=== PATIENT | female | born 1945 | race Caucasian/White ===

== ENCOUNTER 2020-12-06 22:57 | Inpatient (IN) | payer MEDICARE, OTHER ==
[2020-12-07 01:12] LABS: BASO % 0.7 % (0-2.0); EOS % 1.2 % (0-4.5); HEMATOCRIT 44.1 % (32.4-45.2); HEMOGLOBIN 15.1 GM/dL (10.7-15.3); LYMPH % 27.3 % (8-40); MCHC 34.2 g/dl (32.0-36.0); MEAN CELL VOLUME 90.5 fl (80-96); MEAN PLT VOLUME 10.5 fl (7.5-11.1); MONO % 8.8 % (3.8-10.2); RBC 4.87 M/mm3 (3.60-5.2); RDW 13.4 % (11.6-15.6); WHITE BLOOD COUNT 10.9 K/mm3 (4.0-10.0)
[2020-12-07 01:14] LABS: VENOUS BASE EXCESS 0.2 mmol/L (-2-2); VENOUS O2 SATURATION 86.7 % (70-80); VENOUS PCO2 42.5 mmHg (38-52); VENOUS PH 7.392 (7.310-7.410)
[2020-12-07 01:32] LABS: CHLORIDE 104 mmol/L (98-107); SODIUM 136 mmol/L (136-145)
[2020-12-07 01:35] LABS: ALBUMIN 3.4 g/dl (3.4-5.0); ANION GAP 8 MMOL/L (8-16); BLOOD UREA NITROGEN 24.8 mg/dL (7-18); CALCIUM 8.9 mg/dL (8.5-10.1); CO2 25 mmol/L (21-32); MAGNESIUM 2.5 mg/dL (1.8-2.4)
[2020-12-07 01:38] LABS: SGPT/ALT 112 U/L (13-61)
[2020-12-07 01:39] LABS: SGOT/AST 113 U/L (15-37)
[2020-12-07 01:40] LABS: BILIRUBIN,TOTAL 0.8 mg/dL (0.2-1); TOT PROT 7.4 g/dl (6.4-8.2)
[2020-12-07 01:41] LABS: ALK PHOS 96 U/L (45-117)
[2020-12-07 01:44] LABS: GLUCOSE,RANDOM 433 mg/dL (74-106)
[2020-12-07 03:00] LABS: PLATELET ESTIMATE NORMAL
[2020-12-07 03:04] LABS: PLATELET COUNT 210 10^3/uL (134-434)
[2020-12-07] MEDS ORDERED: LACTATED RINGERS SOLUTION 1000 ML INFUS.BAG IV ONE (03:34)
[2020-12-07] MEDS ORDERED: INSULIN REGULAR HUMAN 100 UNITS/ML *VIAL SQ ONE (03:34)
[2020-12-07] MEDS ORDERED: INSULIN REGULAR HUMAN 100 UNITS/ML *VIAL ONE (04:00)
[2020-12-07] MEDS ORDERED: HEPARIN NA (PORCINE) 5,000 UNITS/ML 1ML VIAL ONE (07:37)
[2020-12-07] MEDS: HEPARIN NA (PORCINE) 5,000 UNITS/ML 1ML VIAL SQ SCH ×3 (08:00→21:17)
[2020-12-07] MEDS: INSULIN SLIDING SCALE (NOVOLOG) 1 VIAL SQ SCH ×5 (08:00→23:17)
[2020-12-07] MEDS ORDERED: ALBUTEROL SO4 HFA INHALER IH PRN (08:30)
[2020-12-07] MEDS: MEMANTINE HCL 10 MG TABLET (FP) PO SCH ×2 (11:37→21:17)
[2020-12-07 12:12] LABS: INR 1.06 (0.83-1.09)
[2020-12-07 12:14] LABS: ACTIVATED PTT 23.6 SECONDS (25.2-36.5)
[2020-12-07 12:16] LABS: CHLORIDE 100 mmol/L (98-107); SODIUM 136 mmol/L (136-145)
[2020-12-07 12:18] LABS: CALCIUM 8.5 mg/dL (8.5-10.1)
[2020-12-07 12:19] LABS: ANION GAP 11 MMOL/L (8-16); CO2 25 mmol/L (21-32); GLUCOSE,RANDOM 175 mg/dL (74-106)
[2020-12-07 12:21] LABS: BLOOD UREA NITROGEN 21.2 mg/dL (7-18)
[2020-12-07] MEDS: ALBUTEROL SO4 0.083% IH SOL 2.5 MG/3 ML VIAL.NEB. NEB SCH ×3 (12:21→20:03)
[2020-12-07 12:22] LABS: CREATININE 0.8 mg/dL (0.55-1.3)
[2020-12-07] MEDS ORDERED: POTASSIUM CHLORIDE ORAL LIQUID 20 MEQ/15 ML PO ONE (12:36)
[2020-12-07] MEDS: QUEtiapine FUMARATE 25 MG TABLET PO SCH (13:02)
[2020-12-07] MEDS ORDERED: INSULIN (NOVOLOG) ASPART 100 UNITS/ML 10ML VIAL ONE (17:09)
[2020-12-08] MEDS: INSULIN SLIDING SCALE (NOVOLOG) 1 VIAL SQ SCH ×5 (03:36→21:23)
[2020-12-08] MEDS: HEPARIN NA (PORCINE) 5,000 UNITS/ML 1ML VIAL SQ SCH ×3 (05:06→21:23)
[2020-12-08 07:33] LABS: BASO % 0.6 % (0-2.0); EOS % 2.8 % (0-4.5); HEMATOCRIT 43.5 % (32.4-45.2); HEMOGLOBIN 14.8 GM/dL (10.7-15.3); LYMPH % 39.8 % (8-40); MCH 30.5 pg (25.7-33.7); MEAN CELL VOLUME 89.9 fl (80-96); MEAN PLT VOLUME 10.6 fl (7.5-11.1); MONO % 10.3 % (3.8-10.2); NEUT % 46.5 % (42.8-82.8); PLATELET COUNT 155 10^3/uL (134-434); RBC 4.84 M/mm3 (3.60-5.2); WHITE BLOOD COUNT 7.8 K/mm3 (4.0-10.0)
[2020-12-08] MEDS: ALBUTEROL SO4 0.083% IH SOL 2.5 MG/3 ML VIAL.NEB. NEB SCH ×4 (07:38→20:47)
[2020-12-08 07:54] LABS: CALCIUM 8.7 mg/dL (8.5-10.1)
[2020-12-08 07:55] LABS: ALBUMIN 3.2 g/dl (3.4-5.0); BLOOD UREA NITROGEN 14.3 mg/dL (7-18)
[2020-12-08 07:58] LABS: CREATININE 0.6 mg/dL (0.55-1.3)
[2020-12-08 07:59] LABS: BILIRUBIN,TOTAL 0.5 mg/dL (0.2-1); TOT PROT 6.5 g/dl (6.4-8.2)
[2020-12-08] MEDS: MEMANTINE HCL 10 MG TABLET (FP) PO SCH ×2 (09:18→21:23)
[2020-12-08] MEDS: QUEtiapine FUMARATE 25 MG TABLET PO SCH (09:18)
[2020-12-08] MEDS: metFORMIN HCL 500 MG TABLET (FP) PO SCH ×2 (10:32→17:44)
[2020-12-08 13:15] LABS: EPI CELLS 10 /uL (0-25.1); HYALINE CASTS 0 /uL (0-3.1); PH,URINE 5.5 (5.0-8.0); URINE APPEARANCE CLEAR; URINE BACTERIA 159 /uL (0-1359); URINE BILIRUBIN NEGATIVE (NEGATIVE); URINE COLOR YELLOW; URINE GLUCOSE (UA) TRACE (NEGATIVE); URINE KETONE TRACE (NEGATIVE); URINE LEUK ESTERASE TRACE (NEGATIVE); URINE NITRITE NEGATIVE (NEGATIVE); URINE PROTEIN NEGATIVE (NEGATIVE); URINE RBC 9 /uL (0-23.9); URINE WBC 11 /uL (0-25.8)
[2020-12-09] MEDS: INSULIN SLIDING SCALE (NOVOLOG) 1 VIAL SQ SCH ×4 (06:00→21:04)
[2020-12-09] MEDS: HEPARIN NA (PORCINE) 5,000 UNITS/ML 1ML VIAL SQ SCH ×3 (06:01→21:04)
[2020-12-09] MEDS: metFORMIN HCL 500 MG TABLET (FP) PO SCH ×2 (06:01→16:39)
[2020-12-09] MEDS: ALBUTEROL SO4 0.083% IH SOL 2.5 MG/3 ML VIAL.NEB. NEB SCH ×4 (07:40→20:40)
[2020-12-09] MEDS: MEMANTINE HCL 10 MG TABLET (FP) PO SCH ×2 (09:08→21:04)
[2020-12-09] MEDS: QUEtiapine FUMARATE 25 MG TABLET PO SCH (09:08)
[2020-12-09] MEDS ORDERED: ACETAMINOPHEN 325 MG TABLET (FP) PO PRN (10:31)
[2020-12-10] MEDS: INSULIN (LEVEMIR) 100 UNITS/ML UNITS SQ SCH (06:06)
[2020-12-10] MEDS: metFORMIN HCL 500 MG TABLET (FP) PO SCH ×2 (06:06→16:56)
[2020-12-10] MEDS: HEPARIN NA (PORCINE) 5,000 UNITS/ML 1ML VIAL SQ SCH ×3 (06:07→21:42)
[2020-12-10] MEDS: INSULIN SLIDING SCALE (NOVOLOG) 1 VIAL SQ SCH ×4 (06:07→22:45)
[2020-12-10] MEDS: ALBUTEROL SO4 0.083% IH SOL 2.5 MG/3 ML VIAL.NEB. NEB SCH ×4 (07:40→19:45)
[2020-12-10] MEDS: MEMANTINE HCL 10 MG TABLET (FP) PO SCH ×2 (09:44→21:42)
[2020-12-10] MEDS: QUEtiapine FUMARATE 25 MG TABLET PO SCH (09:44)
[2020-12-10 14:07] LABS: HEP B CORE AB, TOT Negative (Negative); HEPATITIS C VIRUS EIA <0.1 s/co ratio (0.0-0.9)
[2020-12-10 17:11] VITALS: BMI 25.4
[2020-12-11] MEDS: HEPARIN NA (PORCINE) 5,000 UNITS/ML 1ML VIAL SQ SCH ×2 (06:19→14:34)
[2020-12-11] MEDS: metFORMIN HCL 500 MG TABLET (FP) PO SCH (06:19)
[2020-12-11] MEDS: INSULIN SLIDING SCALE (NOVOLOG) 1 VIAL SQ SCH ×2 (06:20→12:23)
[2020-12-11] MEDS: INSULIN (LEVEMIR) 100 UNITS/ML UNITS SQ SCH (06:20)
[2020-12-11] MEDS: ALBUTEROL SO4 0.083% IH SOL 2.5 MG/3 ML VIAL.NEB. NEB SCH ×3 (08:05→15:40)
[2020-12-11] MEDS: MEMANTINE HCL 10 MG TABLET (FP) PO SCH (10:03)
[2020-12-11] MEDS: QUEtiapine FUMARATE 25 MG TABLET PO SCH (10:03)
[2020-12-11 14:17] VITALS: BP 129/69; PULSE 73; TEMP 98.2
== END 2020-12-11 16:36 | disposition home or self-care (01) | DRG 638 ==
LOC: JER 22:57 → JERBED 12-07 04:35 → OBSVTOIN 12-07 06:10 → J4W 12-07 09:17
PROVIDERS: ADMIT Internal Medicine; ATTEND Internal Medicine
DX: E11.65 Type 2 diabetes mellitus with hyperglycemia (principal); F02.81 Dementia in other diseases classified elsewhere, unspecified severity, with behavioral disturbance; G30.9 Alzheimer's disease, unspecified; W19.XXXA Unspecified fall, initial encounter; E78.5 Hyperlipidemia, unspecified; R00.1 Bradycardia, unspecified; R55 Syncope and collapse
CPT/HCPCS: 36415; 70450-TC; 71045-TC-FY; 72125-TC; 80048; 80053; 81003; 82010; 82803; 82962; 83036; 83735; 84484; 85025; 85610; 85730; 86704; 86706; 86707; 86708; 86709; 86803; 87086; 87340; 93005; 93010; 93306-TC; 93880-TC; 94640; 99285-25; C9803; G0378; J1644; U0003; U0005

== ENCOUNTER 2023-01-28 19:11 | Emergency (ER) | payer OTHER ==
[2023-01-28 19:22] VITALS: TEMP 98.3; BMI 31.5
[2023-01-28] MEDS ORDERED: DIPHTH,PERTUSS(ACELL),TET 0.5 ML DISP.SYRIN IM ONE ×2 (20:11→21:07)
[2023-01-28 21:34] LABS: BASO % 0.3 % (0-2.0); MCH 29.2 pg (25.7-33.7); MCHC 32.6 g/dl (32.0-36.0); MEAN CELL VOLUME 89.5 fl (80-96); MEAN PLT VOLUME 9.7 fl (7.5-11.1); MONO % 7.7 % (3.8-10.2); PLATELET COUNT 216 10^3/uL (134-434); RBC 4.47 M/mm3 (3.60-5.2); RDW 13.5 % (11.6-15.6); WHITE BLOOD COUNT 13.8 K/mm3 (4.0-10.0)
[2023-01-28 21:47] LABS: POTASSIUM 4.3 mmol/L (3.5-5.1)
[2023-01-28 21:49] LABS: CALCIUM 8.9 mg/dL (8.5-10.1)
[2023-01-28 21:50] LABS: ALBUMIN 3.4 g/dl (3.4-5.0); BLOOD UREA NITROGEN 29.9 mg/dL (7-18)
[2023-01-28 21:53] LABS: CREATININE 1.3 mg/dL (0.55-1.3)
[2023-01-28 21:54] LABS: TOT PROT 7.1 g/dl (6.4-8.2)
[2023-01-28 21:55] LABS: BILIRUBIN,TOTAL 0.1 mg/dL (0.2-1)
[2023-01-28] MEDS ORDERED: LIDOCAINE PATCH REMOVAL MC SCH (22:00)
[2023-01-28 22:02] LABS: INR 0.97 (0.83-1.09); PROTHROMBIN TIME (PATIENT) 11.3 SEC (9.7-13.0)
[2023-01-28 22:05] LABS: ACTIVATED PTT 25.9 SECONDS (25.2-36.5)
[2023-01-28 22:43] LABS: PH,URINE 5.5 (5.0-8.0); URINE APPEARANCE CLEAR; URINE BILIRUBIN NEGATIVE (NEGATIVE); URINE COLOR YELLOW; URINE GLUCOSE (UA) NEGATIVE (NEGATIVE); URINE KETONE NEGATIVE (NEGATIVE); URINE LEUK ESTERASE NEGATIVE (NEGATIVE); URINE NITRITE NEGATIVE (NEGATIVE); URINE PROTEIN NEGATIVE (NEGATIVE); URINE UROBILINOGEN 0.2 mg/dL (0.2-1.0)
[2023-01-28] MEDS ORDERED: LIDOCAINE 5% TOPICAL PATCH TP ONE (22:53)
[2023-01-28] MEDS ORDERED: LIDOCAINE 5% TOPICAL PATCH ONE (22:55)
[2023-01-29 00:54] VITALS: BP 125/69; PULSE 70; RESP 16
== END 2023-01-28 23:15 | disposition home or self-care (01) ==
LOC: JER 19:11
PROC: 3E0234Z Introduction of Serum, Toxoid and Vaccine into Muscle, Percutaneous Approach (ICD-10-PCS; principal; 2023-01-28)
DX: S22.31XA Fracture of one rib, right side, initial encounter for closed fracture (principal); G30.9 Alzheimer's disease, unspecified; F02.80 Dementia in other diseases classified elsewhere, unspecified severity, without behavioral disturbance, psychotic disturbance, mood disturbance, and anxiety; R74.01 Elevation of levels of liver transaminase levels; S80.211A Abrasion, right knee, initial encounter; S80.212A Abrasion, left knee, initial encounter; W18.39XA Other fall on same level, initial encounter
CPT/HCPCS: 36415; 70450-TC; 71250-TC; 72125-TC; 73560-TC-LT-FY; 73560-TC-RT-FY; 80053; 81003; 84484; 85025; 85610; 85730; 87086; 90471; 90715; 93005; 93010; 99285-25

== ENCOUNTER 2024-03-28 10:30 | Emergency (ER) | payer OTHER ==
[2024-03-28 11:23] VITALS: BP 123/69; PULSE 63; RESP 16; TEMP 97.3; BMI 29.7
[2024-03-28 13:06] LABS: BASO % 0.5 % (0-2.0); EOS % 3.4 % (0-4.5); HEMATOCRIT 44.6 % (32.4-45.2); HEMOGLOBIN 15.2 GM/dL (10.7-15.3); LYMPH % 35.2 % (8-40); MCH 29.7 pg (25.7-33.7); MCHC 34.1 g/dl (32.0-36.0); MEAN CELL VOLUME 87.1 fl (80-96); MEAN PLT VOLUME 8.9 fl (7.5-11.1); MONO % 13.5 % (3.8-10.2); NEUT % 47.4 % (42.8-82.8); PLATELET COUNT 208 10^3/uL (134-434); RBC 5.12 M/mm3 (3.60-5.2); RDW 13.5 % (11.6-15.6); WHITE BLOOD COUNT 9.7 K/mm3 (4.0-10.0)
[2024-03-28 13:19] LABS: POTASSIUM 4.5 mmol/L (3.5-5.1)
[2024-03-28 13:22] LABS: CALCIUM 9.4 mg/dL (8.5-10.1)
[2024-03-28 13:23] LABS: ALBUMIN 3.5 g/dl (3.4-5.0); BLOOD UREA NITROGEN 13.5 mg/dL (7-18)
[2024-03-28 13:25] LABS: CREATININE 0.9 mg/dL (0.55-1.3)
[2024-03-28 13:27] LABS: BILIRUBIN,TOTAL 0.5 mg/dL (0.2-1); TOT PROT 7.5 g/dl (6.4-8.2)
[2024-03-28 17:02] LABS: EPI CELLS 6 /uL (0-25.1); HYALINE CASTS 0 /uL (0-3.1); URINE APPEARANCE CLEAR; URINE BACTERIA 94 /uL (0-1359); URINE BILIRUBIN NEGATIVE (NEGATIVE); URINE COLOR YELLOW; URINE GLUCOSE (UA) NEGATIVE (NEGATIVE); URINE KETONE NEGATIVE (NEGATIVE); URINE LEUK ESTERASE NEGATIVE (NEGATIVE); URINE NITRITE NEGATIVE (NEGATIVE); URINE PROTEIN 1+ (NEGATIVE); URINE RBC 23 /uL (0-23.9); URINE UROBILINOGEN 0.2 mg/dL (0.2-1.0); URINE WBC 11 /uL (0-25.8)
== END 2024-03-28 19:56 | disposition home or self-care (01) ==
LOC: JER 10:30
DX: K59.00 Constipation, unspecified (principal); R53.83 Other fatigue; M79.10 Myalgia, unspecified site; R05.9 Cough, unspecified; R10.30 Lower abdominal pain, unspecified; Z20.822 Contact with and (suspected) exposure to COVID-19
CPT/HCPCS: 0241U-QW; 36415; 71045-TC-FY; 74177-TC; 76705-TC; 80053; 81003; 83690; 83735; 84484; 85025; 87086; 99285-25; Q9967